=== PATIENT | female | born 1990 | race American Indian/Alaskan Native ===

== ENCOUNTER 2019-09-17 11:47 | Emergency (ER) | payer OTHER ==
[~2019-09-17] VITALS: Ht 152.4 cm; Wt 68.5 kg
[2019-09-17 11:57] VITALS: Ht 152.4 cm; Wt 68.5 kg
[2019-09-17 12:30] LABS: microscopic required? NO
[2019-09-17 12:53] LABS: UA SPECIFIC GRAVITY >=1.030 (1.005-1.035); urine erythrocyte NEGATIVE (NEGATIVE)
[2019-09-17 14:12] VITALS: BP 119/78
== END 2019-09-17 14:12 | disposition home or self-care (01) ==
LOC: ED 11:47
PROVIDERS: Emergency Medicine
DX: N72 Inflammatory disease of cervix uteri (principal)
CPT/HCPCS: 87491; 87591; J0696

== ENCOUNTER 2019-09-18 11:26 | Emergency (ER) | payer OTHER ==
[~2019-09-18] VITALS: Ht 162.6 cm; Wt 64.0 kg
[2019-09-18 11:38] VITALS: Ht 162.6 cm; Wt 64.0 kg
[2019-09-18 12:24] LABS: BASOPHIL % 0.7 % (0-2); PLATELET COUNT 305 x10^3mcL (130-400)
[2019-09-18 12:25] LABS: RED CELL DISTRIBUTION WIDTH 15.5 % (11.5-14.5)
[2019-09-18 12:32] LABS: CALCIUM 9.3 mg/dL (8.5-10.1); CARBON DIOXIDE 30.7 mmol/L (21-32); CHLORIDE SERUM 105 mmol/L (98-107); CREATININE SERUM 0.7 mg/dL (0.6-1.0); GFR1 > 60 mL/min; GLUCOSE SERUM 113 mg/dL (74-106); POTASSIUM SERUM 4.1 mmol/L (3.5-5.1); SODIUM SERUM 138 mmol/L (136-145)
[2019-09-18 12:49] LABS: ALBUMIN 3.8 g/dL (3.4-5.0); ALKALINE PHOSPHATASE 88 U/L (46-116); ALT/SGPT 45 U/L (14-59); AMYLASE 79 U/L (25-115); AST/SGOT 25 U/L (15-37); BILIRUBIN TOTAL 0.36 mg/dL (0.20-1.00); LIPASE 124 IU/L (73-393); TOTAL PROTEIN, SERUM 7.7 g/dL (6.4-8.2)
[2019-09-18 14:27] VITALS: BP 108/73
== END 2019-09-18 14:27 | disposition home or self-care (01) ==
LOC: ED 11:26
PROVIDERS: Emergency Medicine
DX: K29.00 Acute gastritis without bleeding (principal); R51 Headache
CPT/HCPCS: J1885; J2405

== ENCOUNTER 2019-11-19 11:45 | Emergency (ER) | payer OTHER ==
[~2019-11-19] VITALS: Ht 154.9 cm; Wt 68.5 kg
[2019-11-19 11:58] VITALS: Ht 154.9 cm; Wt 68.5 kg
[2019-11-19 14:37] LABS: BASOPHIL % 0.3 % (0-2); PLATELET COUNT 275 x10^3mcL (130-400); RED CELL DISTRIBUTION WIDTH 15.3 % (11.5-14.5)
[2019-11-19 14:49] LABS: CALCIUM 9.1 mg/dL (8.5-10.1); CARBON DIOXIDE 24.1 mmol/L (21-32); CHLORIDE SERUM 103 mmol/L (98-107); CREATININE SERUM 0.6 mg/dL (0.6-1.0); GFR1 > 60 mL/min; GLUCOSE SERUM 82 mg/dL (74-106); POTASSIUM SERUM 3.7 mmol/L (3.5-5.1); SODIUM SERUM 139 mmol/L (136-145)
[2019-11-19 14:53] LABS: ALBUMIN 3.7 g/dL (3.4-5.0); ALKALINE PHOSPHATASE 62 U/L (46-116); ALT/SGPT 46 U/L (14-59); AST/SGOT 19 U/L (15-37); BILIRUBIN TOTAL 0.3 mg/dL (0.20-1.00); TOTAL PROTEIN, SERUM 7.2 g/dL (6.4-8.2)
[2019-11-19 14:54] LABS: microscopic required? YES; urine erythrocyte NEGATIVE (NEGATIVE)
[2019-11-19 15:58] VITALS: BP 104/66
== END 2019-11-19 15:58 | disposition home or self-care (01) ==
LOC: ED 11:45
PROVIDERS: Emergency Medicine
DX: O23.11 Infections of bladder in pregnancy, first trimester (principal); Z3A.01 Less than 8 weeks gestation of pregnancy
CPT/HCPCS: 36415; Q0092

== ENCOUNTER 2019-12-08 18:26 | Emergency (ER) | payer OTHER ==
[~2019-12-08] VITALS: Ht 154.9 cm; Wt 68.5 kg
[2019-12-08 18:31] VITALS: Ht 154.9 cm; Wt 68.5 kg
[2019-12-08 19:39] VITALS: BP 115/63
== END 2019-12-08 19:39 | disposition home or self-care (01) ==
LOC: ED 18:26
DX: O26.891 Other specified pregnancy related conditions, first trimester (principal); R19.7 Diarrhea, unspecified; R21 Rash and other nonspecific skin eruption; R10.30 Lower abdominal pain, unspecified; Z3A.08 8 weeks gestation of pregnancy

== ENCOUNTER → 2019-12-27 | Outpatient (CLI) | payer OTHER ==
[2019-12-27 17:32] LABS: BASOPHIL % 0.3 % (0-2); PLATELET COUNT 287 x10^3mcL (130-400)
[2019-12-27 17:37] LABS: RED CELL DISTRIBUTION WIDTH 17.4 % (11.5-14.5); UA SPECIFIC GRAVITY <=1.005 (1.005-1.035); microscopic required? YES; urine erythrocyte NEGATIVE (NEGATIVE)
== END | disposition home or self-care (01) ==
LOC: LB 16:41
DX: E55.9 Vitamin D deficiency, unspecified (principal); Z31.81 Encounter for male factor infertility in female patient
CPT/HCPCS: 82947

== ENCOUNTER → 2020-01-25 | Outpatient (CLI) | payer OTHER ==
[2020-01-25 15:42] LABS: BASOPHIL % 0.4 % (0-2); PLATELET COUNT 274 x10^3mcL (130-400)
[2020-01-25 15:43] LABS: UA SPECIFIC GRAVITY 1.025 (1.005-1.035); microscopic required? YES; urine erythrocyte NEGATIVE (NEGATIVE)
[2020-01-25 15:46] LABS: RED CELL DISTRIBUTION WIDTH 16.5 % (11.5-14.5)
[2020-01-26 06:06] LABS: RAPID PLASMA REAGIN Non Reactive (Non Reactive)
== END | disposition home or self-care (01) ==
LOC: LB 15:05
DX: Z31.81 Encounter for male factor infertility in female patient (principal)
CPT/HCPCS: 82947

== ENCOUNTER 2020-02-09 19:50 | Emergency (ER) | payer OTHER, SELFPAY ==
[~2020-02-09] VITALS: Ht 152.4 cm; Wt 69.9 kg
[2020-02-09 19:54] VITALS: Ht 152.4 cm; Wt 69.9 kg
[2020-02-09 21:17] VITALS: BP 103/74
== END 2020-02-09 21:17 | disposition home or self-care (01) ==
LOC: ED 19:50
DX: B34.9 Viral infection, unspecified (principal); Z20.828 Contact with and (suspected) exposure to other viral communicable diseases
CPT/HCPCS: U0003-CS

== ENCOUNTER 2020-02-18 19:40 | Emergency (ER) | payer OTHER ==
[~2020-02-18] VITALS: Ht 152.4 cm; Wt 69.4 kg
[2020-02-18 19:47] VITALS: Ht 152.4 cm; Wt 69.4 kg
[2020-02-18 22:08] VITALS: BP 110/55
== END 2020-02-18 22:08 | disposition home or self-care (01) ==
LOC: ED 19:40
DX: O23.592 Infection of other part of genital tract in pregnancy, second trimester (principal); Z3A.18 18 weeks gestation of pregnancy
CPT/HCPCS: 87491; 87591

== ENCOUNTER 2020-03-10 10:43 | Emergency (ER) | payer OTHER ==
[~2020-03-10] VITALS: Ht 152.4 cm; Wt 70.3 kg
[2020-03-10 10:51] VITALS: Ht 152.4 cm; Wt 70.3 kg
[2020-03-10 11:34] VITALS: BP 111/63
== END 2020-03-10 12:02 | disposition home or self-care (01) ==
LOC: ED 10:43
DX: O26.892 Other specified pregnancy related conditions, second trimester (principal); R04.0 Epistaxis; Z3A.22 22 weeks gestation of pregnancy

== ENCOUNTER → 2020-04-10 | Outpatient (CLI) | payer OTHER ==
[2020-04-10 17:33] LABS: BASOPHIL % 1.9 % (0-2); PLATELET COUNT 308 x10^3mcL (130-400); RED CELL DISTRIBUTION WIDTH 13.8 % (11.5-14.5)
== END | disposition home or self-care (01) ==
LOC: LB 17:08
DX: Z34.90 Encounter for supervision of normal pregnancy, unspecified, unspecified trimester (principal)

== ENCOUNTER 2020-05-20 23:48 | Emergency (ER) | payer OTHER ==
[~2020-05-20] VITALS: Ht 152.4 cm; Wt 72.6 kg
[2020-05-21 00:03] VITALS: Ht 152.4 cm; Wt 72.6 kg
[2020-05-21 01:18] VITALS: BP 115/69
== END 2020-05-21 01:18 | disposition home or self-care (01) ==
LOC: ED 23:48
DX: O36.8130 Decreased fetal movements, third trimester, not applicable or unspecified (principal); Z13.9 Encounter for screening, unspecified

== ENCOUNTER → 2020-06-12 | Outpatient (CLI) | payer OTHER ==
[2020-06-12 18:00] LABS: BASOPHIL % 0.2 % (0-2); PLATELET COUNT 250 x10^3mcL (130-400); RED CELL DISTRIBUTION WIDTH 17.3 % (11.5-14.5)
== END | disposition home or self-care (01) ==
LOC: LB 17:00
DX: Z34.90 Encounter for supervision of normal pregnancy, unspecified, unspecified trimester (principal)